=== PATIENT | female | born 1945 | race Caucasian/White ===

== ENCOUNTER → 2019-03-05 | Outpatient (CLI) | payer OTHER ==
[~2019-03-05] MED LIST: CIPRO500 MG PO; ELAVIL PO; HYDROCODONE-AP1 EAC6 PO; NORCO 5-325 TA1 EACH PO; SYNTHROID25 MCG PO; ZOFRAN8 MG PO; [UNRECOGNIZED DRUG - REMARK]
== END ==
LOC: M.ULTRA 10:26
DX: R35.0 Frequency of micturition (principal); Z90.710 Acquired absence of both cervix and uterus

== ENCOUNTER 2021-02-19 11:05 | Emergency (ER) | payer OTHER ==
[~2021-02-19] VITALS: Ht 165.1 cm; Wt 77.1 kg
[2021-02-19] MEDS ORDERED: OTHER ×2 (11:19→11:20)
[2021-02-19] MEDS ORDERED: PREGNENOLONE1 GM PO (11:20)
[2021-02-19] MEDS ORDERED: OMEGA 3 1,0001 EACH PO (11:20)
[2021-02-19] MEDS ORDERED: PROBIOTIC1 EAC7 PO (11:21)
[2021-02-19] MEDS ORDERED: DORYX MPC120 MG PO (11:21)
[2021-02-19] MEDS ORDERED: VITAMIN B-121000 MC2 PO (11:21)
[2021-02-19] MEDS ORDERED: RED YEAST RICE600 MG PO (11:21)
[2021-02-19] MEDS ORDERED: METHYLPREDNISOL32 MG PO (11:22)
[2021-02-19 11:24] LABS: ABSOLUTE LYMPHOCYTES 1.9 thou/uL (0.8-5.3); ABSOLUTE NEUTROPHILS 12.1 thou/uL (1.6-8.1); BASOPHILS 0.3 %; EOSINOPHILS 0.2 %; HEMATOCRIT 47.3 % (37.0-47.0); HEMOGLOBIN 15.9 gm/dL (12.0-15.0); LYMPHOCYTES 12.4 %; MCH 31.6 pg (26.0-34.0); MCHC 33.6 g/dL (28.0-37.0); MCV 94.1 fL (80.0-100.0); MONOCYTES 6.9 %; MPV 6.7 fl. (7.2-11.1); NUCLEATED RBCS 0 /100WBC; PLATELET COUNT* 251 thou/uL (150-400); POLYS 80.2 %; RBC 5.03 mil/uL (4.20-5.00); WBC 15.1 thou/uL (4.0-11.0)
[2021-02-19 11:33] LABS: CALCIUM 9.4 mg/dL (8.5-10.1); CREATININE 1.1 mg/dL (0.6-1.3); POTASSIUM 4.2 mmol/L (3.5-5.1)
[2021-02-19 11:43] LABS: ALBUMIN 4.7 g/dL (3.4-5.0); MAGNESIUM 2.5 mg/dL (1.8-2.4); TOTAL BILIRUBIN 0.4 mg/dL (<0.1-1.0); TOTAL PROTEIN 8.1 g/dL (6.4-8.2)
[2021-02-19 13:47] VITALS: BP 154/70
--- NOTE | 2021-02-19 14:26 | EKG ---
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
== END 2021-02-19 13:48 | disposition home or self-care (01) ==
LOC: M.ERS 11:05
PROVIDERS: Family Medicine
DX: R07.89 Other chest pain (principal); Z90.89 Acquired absence of other organs; Z79.899 Other long term (current) drug therapy